=== PATIENT | male | born 1975 | race Caucasian/White ===

== ENCOUNTER 2017-01-26 07:15 | Inpatient (IN) ==
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
[2017-01-26] MEDS ORDERED: Ondansetron 4 MG/2 ML VIAL IVP ONE (07:38)
[2017-01-26] MEDS ORDERED: *HR* HYDROmorphone (PF) 1 MG/ML SYRINGE IVP ONE (07:43)
[2017-01-26] MEDS ORDERED: 0.9 % Sodium Chloride 1,000 ML IVC ONE (07:45)
[2017-01-26 07:52] LABS: Basophils % 0.2 %; Eosinophils # 0.1 K/mcL (0.0-0.6); Eosinophils % 0.7 %; Hematocrit 42.5 % (37.5-50.1); Hemoglobin 14.4 g/dL (12.9-16.9); Immature Granulocytes % 0.3 % (0-4); Immature Platelets 3.9 % (1.1-6.1); Lymphocytes # 1.1 K/mcL (0.6-4.6); Lymphocytes % 10.8 %; Mean Corpuscular HGB Conc 33.9 g/dL (31.6-35.5); Mean Corpuscular Hemoglobin 31.6 pg (28.0-33.3); Mean Corpuscular Volume 93.2 fL (83.0-100.0); Mean Platelet Volume 9.9 fL (9.4-12.4); Monocytes # 1.2 K/mcL (0.0-1.3); Monocytes % 12.7 %; Neutrophils # 7.4 K/mcL (1.6-8.9); Platelet Count 149 K/mcL (140-400); Red Blood Count 4.56 M/mcL (4.19-5.50); Red Cell Distribution Width 14.4 % (11.5-14.5); Segmented Neutrophils % 75.3 %
[2017-01-26] MEDS ORDERED: 0.9 % Sodium Chloride 500 ML IVC ONE (07:58)
[2017-01-26 08:06] LABS: Alanine Aminotransferase 29 Units/L (0-55); Albumin 3.5 g/dL (3.5-5.0); Alkaline Phosphatase 152 Units/L (38-126); Aspartate Amino Transferase 26 Units/L (5-34); BUN/Creatinine Ratio 10 (6-26); Bilirubin,Direct 0.2 mg/dL (0.0-0.5); Bilirubin,Indirect 0.3 mg/dL (0.0-1.2); Bilirubin,Total 0.5 mg/dL (0.2-1.2); Blood Urea Nitrogen 8 mg/dL (8-26); Calcium 9.6 mg/dL (8.6-10.8); Carbon Dioxide 25 mEq/L (19-29); Chloride 102 mEq/L (98-109); Globulin 3.5 g/dL (2.4-3.5); Glucose 109 mg/dL (70-99); Lipase 22 Units/L (8-78); Osmolality,Calculated 287 (280-300); Potassium 3.3 mEq/L (3.5-4.5); Sodium 139 mEq/L (136-145); eGFR For African Americans > 60 (> 60); eGFR For Non-African Americans > 60 (> 60)
--- NOTE | 2017-01-26 08:14 | Emergency Department Note ---
START Narrative - START START: I examined this patient and my medical decision-making was reviewed with the emergency medicine resident. I agree with the documented findings, disposition and treatment plan as described except to the extent set forth below. Patient seen with emergency medicine resident Dr. QUE VELÁZQUEZ, Please see a copy of his note for details of the H&P, ED evaluation, management and disposition. I have independently evaluated the patient and confirmed appropriate portions of the history and physical exam. Briefly: A 41-year-old -[place] male kidney transplant patient transplant done several years ago at [facility]. Presents with nausea vomiting abdominal cramping and bilateral lower quadrants and bloody stools. Patient does have a history of hypertension although systolic of 187 is much much elevated at this time. Patient's abdomen is surgically benign he is afebrile. Patient getting IV fluids anti-medics analgesics CBC and chemistry panel are within normal limits are essentially so. We consult to the care coordinator to get guidance on abdominal pelvic CT with IV contrast to exclude intra-abdominal processes and walk mesenteric ischemia. They recommended 150 mL per hour prior N and 6 hours after procedure. Patient is awaiting CT scan. Provided 45 minutes of critical care services for this patient. Disposition pending.
[2017-01-26 12:10] LABS: Amphetamine Screen,Urine Negative ng/mL (Cutoff=1000); Barbiturate Screen,Urine Negative ng/mL (Cutoff=200); Benzodiazepines Screen,Urine Positive ng/mL (Cutoff=200); Cannabinoid Screen,Urine Negative ng/mL (Cutoff = 50); Cocaine Screen,Urine Negative ng/mL (Cutoff= 300); Opiate Screen,Urine Positive ng/mL (Cutoff=300); Phencyclidine Screen,Urine Negative ng/mL (Cutoff=25)
[2017-01-26] MEDS ORDERED: Acetaminophen 325 MG TABLET PO PRN (12:51)
[2017-01-26] MEDS ORDERED: Naloxone 0.4 MG/ML INJ IVP PRN (12:51)
[2017-01-26] MEDS: Aspirin Enteric Coated 81 MG Tablet PO SCH (13:16)
[2017-01-26] MEDS: predniSONE 10 MG TABLET PO SCH (13:16)
[2017-01-26] MEDS: Pantoprazole 40 MG VIAL IVP SCH (13:16)
[2017-01-26] MEDS: 0.9 % Sodium Chloride 1,000 ML IVC SCH ×2 (13:16→20:53)
[2017-01-26] MEDS: SIROLIMUS 2 MG PO SCH (13:42)
[2017-01-26] MEDS: Nicotine 14 MG PATCH.TD24 TD SCH (13:42)
[2017-01-26] MEDS: Vancomycin Oral Soln 250 MG/5 ML UDC PO SCH ×3 (13:42→23:52)
[2017-01-26] MEDS: MYFORTIC 180MG PO SCH (13:59)
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
[2017-01-26] MEDS ORDERED: *HR* Dextrose 50 % in Water (Syg) 50 ML SYRINGE IVP PRN (15:34)
[2017-01-26] MEDS ORDERED: Dextrose Gel 15 GM PO PRN ×2 (15:34)
[2017-01-26] MEDS ORDERED: D5% in Water 1,000 ML IVC PRN (15:34)
[2017-01-26] MEDS: MetroNIDAZOLE 500 MG/100 ML 500 MG/100 ML BAG IVPB SCH ×2 (15:51→23:52)
[2017-01-26] MEDS: hydrALAZINE 25 MG TABLET PO SCH ×2 (15:51→20:46)
[2017-01-26] MEDS: Cefepime HCl 2,000 MG in D5% in Water (Mini-Bag+) 100 ML IVPB SCH ×2 (15:52→23:52)
[2017-01-26] MEDS: Ondansetron 4 MG/2 ML VIAL IVP SCH ×2 (15:52→20:45)
[2017-01-26] MEDS: *HR* Morphine 2 MG/ML SYRINGE IVP PRN ×2 (15:59→20:53)
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
[2017-01-26] MEDS: Insulin LISPRO 300 UNITS/3 ML VIAL SQ SCH ×2 (18:54→22:19)
[2017-01-27] MEDS: *HR* Morphine 2 MG/ML SYRINGE IVP PRN ×5 (01:17→23:44)
[2017-01-27] MEDS: MYFORTIC 180MG PO SCH ×2 (01:17→13:45)
[2017-01-27] MEDS: Ondansetron 4 MG/2 ML VIAL IVP SCH ×7 (01:17→23:53)
[2017-01-27 05:05] LABS: Immature Granulocytes % 0.3 % (0-4); Mean Corpuscular Volume 96.6 fL (83.0-100.0); Red Cell Distribution Width 14.6 % (11.5-14.5)
[2017-01-27 05:07] LABS: Basophils % 0.3 %; Eosinophils % 0.8 %; Hematocrit 33.9 % (37.5-50.1); Hemoglobin 10.8 g/dL (12.9-16.9); Immature Platelets 3.4 % (1.1-6.1); Lymphocytes # 0.9 K/mcL (0.6-4.6); Lymphocytes % 22.9 %; Mean Corpuscular HGB Conc 31.9 g/dL (31.6-35.5); Mean Corpuscular Hemoglobin 30.8 pg (28.0-33.3); Mean Platelet Volume 9.9 fL (9.4-12.4); Monocytes # 0.5 K/mcL (0.0-1.3); Monocytes % 12.6 %; Neutrophils # 2.5 K/mcL (1.6-8.9); Platelet Count 114 K/mcL (140-400); Red Blood Count 3.51 M/mcL (4.19-5.50); Segmented Neutrophils % 63.1 %
[2017-01-27 05:21] LABS: Alanine Aminotransferase 19 Units/L (0-55); Albumin/Globulin Ratio 1.1 (1.1-2.2); Alkaline Phosphatase 107 Units/L (38-126); Aspartate Amino Transferase 17 Units/L (5-34); BUN/Creatinine Ratio 13 (6-26); Bilirubin,Total 0.4 mg/dL (0.2-1.2); Blood Urea Nitrogen 9 mg/dL (8-26); Calcium 8.3 mg/dL (8.6-10.8); Carbon Dioxide 25 mEq/L (19-29); Chloride 108 mEq/L (98-109); Globulin 2.4 g/dL (2.4-3.5); Glucose 75 mg/dL (70-99); Magnesium 1.6 mg/dL (1.6-2.6); Osmolality,Calculated 283 (280-300); Phosphorous 2.5 mg/dL (2.3-4.7); Potassium 3.4 mEq/L (3.5-4.5); Sodium 138 mEq/L (136-145); eGFR For African Americans > 60 (> 60); eGFR For Non-African Americans > 60 (> 60)
[2017-01-27 05:24] LABS: Albumin 2.6 g/dL (3.5-5.0)
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
--- NOTE | 2017-01-27 07:01 | General Surgery Progress Note ---
<Gisella Lao - Last Filed: 01/27/17 10:45> Date of Encounter: 01/27/17 Time of Encounter: 06:20 - Assessment and Plan (1) Intractable abdominal pain Current Visit: Yes Status: Acute Patient still having pain in his abdomen especially in the LLQ but pain is less than before. PE showed a soft, mild disteneded, tender diffusely but mostly LLQ , bowel sounds present and normal. Patient currently does not have a surgical abdomen. Patient is currently on Flagyl. Vitals stable and afebrile. Plan: - serial abdominal exams - continue to monitor vitals - continue Flagyl - per surgery can progress from NPO to clears but should wait for GI's recommendations first. (2) Pancolitis Current Visit: Yes Status: Acute Vitals are stable and afebrile since hospital admission. WBC within normal limit. Continue Flagyl. Subjective Narrative: Patient is a 41 year old male with medical history of hypertension, renal transplant, renal disease, AICD, CAD, and hyperlipidemia presented to the the ED with chief complaint of progressive worsening of abdominal pain over the last couple of months and new onset blood in his stool x 3 days and was admitted for pancolitis, intractable abdominal pain and bloody stools. Surgery was consulted for possible progression of pancolitis infection to need for surgical intervention. Today patient says his pain is starting bilaterally on the lateral aspect of his back and wrapping around to his flanks. His abdominal pain is less today. He is hungry. He denies N/V, SOB, or chest pain. Objective Vital Signs - Last 8 Hours Temp Pulse Resp BP Pulse Ox 01/27/17 06:52 97.9 F 67 16 130/74 95 01/27/17 03:50 98.5 F 71 16 127/76 97 01/26/17 23:35 97.4 F L 70 16 94/55 98 01/26/17 23:08 98.2 F 84 15 112/65 94 Intake and Output 01/26/17 01/26/17 01/27/17 15:59 23:59 07:59 Intake Total 1200 / 1200 200 / 200 Balance 1200 / 1200 200 / 200 Intake: IV Fluids 1200 / 1200 200 / 200 0.9 % Sodium Chloride 1,000 ML 1000 / 1000 @ 150 mls/hr IVC .Q6H40M [facility] Rx #:[id number] Maxipime 2,000 MG In Dextrose 5 100 / 100 100 / 100 % (Minibag+) 100 ML 100 ML @ 200 mls/hr IVPB Q8HR [facility] Rx#: [id number] Flagyl Premix 500 MG/100 ML 500 100 / 100 100 / 100 mg In 100 ml @ 100 mls/hr IVPB Q8HR [facility] Rx#:[id number] Other: Meal NPO Weight 61.825 kg Blood Glucose* 95 74 Patient Weight 01/27/17 23:59 Weight 61.825 kg - Additional Exam Constitutional: Alert, in no acute distress, well nourished, well developed. Head: Normocephalic, atraumatic, normal contour and symmetric, no masses, lesions or scars Heart: Normal, regular rate and rhythm, no murmurs Lungs: + wheezing, Clear to auscultation, rales, or rhonchi Abdomen: scar from middle of sternum down to suprapubic area vertically, LLQ scar about 8cm, mild distention, tenderness diffusely but worst in the LLQ, Soft and no masses palpable, bowel sounds present and normal, no guarding or rigidity. Extremities: No clubbing, cyanosis, or edema, radial pulse +2/4, capillary refill <2sec. Skin: multiple small circular scars all over his body, Skin warm and dry, no lesions, no rashes, no jaundice Neurologic: Cranial nerves II through XII grossly intact, no focal deficits, strength within normal limits in all extremities Psych: Cooperative with exam, good eye contact, cognitive function intact, judgment good insight good, speech clear, thought process logical, and goal directed - Labs 01/27/17 04:58 01/27/17 04:58 Diabetes panel 01/27/17 01/27/17 Range/Units 04:58 04:58 Sodium 138 (136-145) mEq/L Potassium 3.4 L (3.5-4.5) mEq/L Chloride 108 (98-109) mEq/L Carbon Dioxide 25 (19-29) mEq/L BUN 9 (8-26) mg/dL Creatinine 0.71 L (0.72-1.25) mg/dL Glucose 75 (70-99) mg/dL Hemoglobin A1c 5.0 ( - 5.6) % Calcium 8.3 L (8.6-10.8) mg/dL AST 17 (5-34) Units/L ALT 19 (0-55) Units/L Alkaline Phosphatase 107 (38-126) Units/L Albumin 2.6 L D (3.5-5.0) g/dL Calcium panel 01/27/17 Range/Units 04:58 Calcium 8.3 L (8.6-10.8) mg/dL Phosphorus 2.5 (2.3-4.7) mg/dL Albumin 2.6 L D (3.5-5.0) g/dL Pituitary panel 01/27/17 Range/Units 04:58 Sodium 138 (136-145) mEq/L Potassium 3.4 L (3.5-4.5) mEq/L Chloride 108 (98-109) mEq/L Carbon Dioxide 25 (19-29) mEq/L BUN 9 (8-26) mg/dL Creatinine 0.71 L (0.72-1.25) mg/dL Glucose 75 (70-99) mg/dL Calcium 8.3 L (8.6-10.8) mg/dL Adrenal panel 01/27/17 Range/Units 04:58 Sodium 138 (136-145) mEq/L Potassium 3.4 L (3.5-4.5) mEq/L Chloride 108 (98-109) mEq/L Carbon Dioxide 25 (19-29) mEq/L BUN 9 (8-26) mg/dL Creatinine 0.71 L (0.72-1.25) mg/dL Glucose 75 (70-99) mg/dL Calcium 8.3 L (8.6-10.8) mg/dL Total Bilirubin 0.4 (0.2-1.2) mg/dL AST 17 (5-34) Units/L ALT 19 (0-55) Units/L Alkaline Phosphatase 107 (38-126) Units/L Albumin 2.6 L D (3.5-5.0) g/dL Consult Discharge Plan - Plan Referrals: Tolu Bustos MD [Primary Care Provider] - (web request 01/27/2017) <Africa Mustafa - Last Filed: 01/27/17 14:27> Date of Encounter: 01/27/17 Time of Encounter: 10:00 - Assessment and Plan (1) Abdominal pain Current Visit: Yes Status: Resolved pain resolved and not present this am passing flatus but no bm discussed that if he has further diarrhea with check a gi panel Qualifiers: Abdominal location: lower abdomen, unspecified Qualified Code(s): R10.30 - Lower abdominal pain, unspecified (2) Bloody stools Current Visit: Yes Status: Resolved no further bms, seems to have resolved (3) DVT prophylaxis Current Visit: Yes Status: Acute (4) Pancolitis Current Visit: Yes Status: Acute patients symptoms resolving and no further abdominal pain today, ok to start fulls and see how patient tolerates Subjective Patient reports: no new complaints, feels better, flatus, no bowel movement, afebrile Objective Vital Signs - Last 8 Hours Temp Pulse Resp BP Pulse Ox 01/27/17 10:00 97.6 F 61 16 115/69 94 01/27/17 08:22 95 01/27/17 06:52 97.9 F 67 16 130/74 95 Intake and Output 01/26/17 01/27/17 01/27/17 23:59 07:59 15:59 Intake Total 1200 / 1200 200 / 200 120 / 120 Balance 1200 / 1200 200 / 200 120 / 120 Intake: IV Fluids 1200 / 1200 200 / 200 0.9 % Sodium Chloride 1,000 ML 1000 / 1000 @ 150 mls/hr IVC .Q6H40M [facility] Rx #:[id number] Maxipime 2,000 MG In Dextrose 5 100 / 100 100 / 100 % (Minibag+) 100 ML 100 ML @ 200 mls/hr IVPB Q8HR [facility] Rx#: [id number] Flagyl Premix 500 MG/100 ML 500 100 / 100 100 / 100 mg In 100 ml @ 100 mls/hr IVPB Q8HR [facility] Rx#:[id number] Oral 120 / 120 Other: Meal NPO Lunch Percent of Meal Consumed 100% Weight 61.825 kg Blood Glucose* 95 74 93 Patient Weight 01/27/17 23:59 Weight 61.825 kg - General physical appearance well nourished, no distress, chronically ill - Eyes PERRL, normal ocular movement - ENT normal mucosa, normocephalic - Neck Neck exam: trachea midline - Respiratory normal expansion, clear to auscultation - Cardiovascular Cardiovascular exam: Present: RRR - Abdomen Abdomen: Present: bowel sounds present, soft, non tender. Absent: guarding, rebound - Integumentary no rash, no growths - Neurologic CN 2-12 grossly intact - Musculoskeletal normal posture - Psychiatric oriented to time, memory intact - Labs 01/27/17 04:58 01/27/17 04:58 Diabetes panel 01/27/17 01/27/17 Range/Units 04:58 04:58 Sodium 138 (136-145) mEq/L Potassium 3.4 L (3.5-4.5) mEq/L Chloride 108 (98-109) mEq/L Carbon Dioxide 25 (19-29) mEq/L BUN 9 (8-26) mg/dL Creatinine 0.71 L (0.72-1.25) mg/dL Glucose 75 (70-99) mg/dL Hemoglobin A1c 5.0 ( - 5.6) % Calcium 8.3 L (8.6-10.8) mg/dL AST 17 (5-34) Units/L ALT 19 (0-55) Units/L Alkaline Phosphatase 107 (38-126) Units/L Albumin 2.6 L D (3.5-5.0) g/dL Calcium panel 01/27/17 Range/Units 04:58 Calcium 8.3 L (8.6-10.8) mg/dL Phosphorus 2.5 (2.3-4.7) mg/dL Albumin 2.6 L D (3.5-5.0) g/dL Pituitary panel 01/27/17 Range/Units 04:58 Sodium 138 (136-145) mEq/L Potassium 3.4 L (3.5-4.5) mEq/L Chloride 108 (98-109) mEq/L Carbon Dioxide 25 (19-29) mEq/L BUN 9 (8-26) mg/dL Creatinine 0.71 L (0.72-1.25) mg/dL Glucose 75 (70-99) mg/dL Calcium 8.3 L (8.6-10.8) mg/dL Adrenal panel 01/27/17 Range/Units 04:58 Sodium 138 (136-145) mEq/L Potassium 3.4 L (3.5-4.5) mEq/L Chloride 108 (98-109) mEq/L Carbon Dioxide 25 (19-29) mEq/L BUN 9 (8-26) mg/dL Creatinine 0.71 L (0.72-1.25) mg/dL Glucose 75 (70-99) mg/dL Calcium 8.3 L (8.6-10.8) mg/dL Total Bilirubin 0.4 (0.2-1.2) mg/dL AST 17 (5-34) Units/L ALT 19 (0-55) Units/L Alkaline Phosphatase 107 (38-126) Units/L Albumin 2.6 L D (3.5-5.0) g/dL - Attending Attestation I examined this patient and my medical decision-making was reviewed with the Resident Physician. I agree with the documented findings, disposition and treatment plan as described except to the extent set forth below.
[2017-01-27] MEDS: Insulin LISPRO 300 UNITS/3 ML VIAL SQ SCH ×4 (07:33→19:57)
[2017-01-27] MEDS: MetroNIDAZOLE 500 MG/100 ML 500 MG/100 ML BAG IVPB SCH ×3 (07:51→23:45)
[2017-01-27] MEDS: Cefepime HCl 2,000 MG in D5% in Water (Mini-Bag+) 100 ML IVPB SCH ×3 (07:51→23:50)
[2017-01-27] MEDS: Aspirin Enteric Coated 81 MG Tablet PO SCH (08:04)
[2017-01-27] MEDS: predniSONE 10 MG TABLET PO SCH (08:04)
[2017-01-27] MEDS: Nicotine 14 MG PATCH.TD24 TD SCH (08:04)
[2017-01-27] MEDS: hydrALAZINE 25 MG TABLET PO SCH ×3 (08:04→20:08)
[2017-01-27] MEDS: Pantoprazole 40 MG VIAL IVP SCH (08:05)
[2017-01-27] MEDS: Vancomycin Oral Soln 250 MG/5 ML UDC PO SCH ×4 (10:05→20:09)
[2017-01-27] MEDS ORDERED: Potassium Chloride 40 MEQ, Lidocaine 1% 2 ML in D5% in Water 500 ML IVPB ONE (10:30)
[2017-01-27] MEDS ORDERED: Patient Taking Own Medication 1 EACH PO SCH (13:00)
--- NOTE | 2017-01-27 16:52 | Internal Med Progress Note ---
Date of Encounter: 01/27/17 Time of Encounter: 16:49 - Assessment and plan (1) Pancolitis Current Visit: Yes Status: Acute (2) Bloody stools Current Visit: Yes Status: Resolved (3) Hypokalemia Current Visit: Yes Status: Acute (4) HTN (hypertension) Current Visit: Yes Status: Chronic Qualifiers: Hypertension type: essential hypertension Qualified Code(s): I10 - Essential (primary) hypertension (5) HLD (hyperlipidemia) Current Visit: Yes Status: Chronic Qualifiers: Hyperlipidemia type: pure hypercholesterolemia Qualified Code(s): E78.00 - Pure hypercholesterolemia, unspecified; E78.0 - Pure hypercholesterolemia (6) Renal transplant recipient Current Visit: Yes Status: Chronic - Subjective Interval history: Patient reports abdominal pain in lower abdomen that has been occurring for the past month and half. He had CT scan here on 01/01/17 which showed colitis for which he was prescribed antibiotics and recently finished. Patient reports pain has become significantly worse over the past 2 days and he has developed blood in his stool. Yesterday started on Levaquin and Flagyl. Abdominal is soft but distended and tender. Requesting food. Clear liquids can be started. Potassium will be supplemented. He will need colonoscopy at some point. His hemoglobin has dropped quite significantly and CBC will be rechecked. This could be due to hemodilution partly - Constitutional Vitals: Temp Pulse Resp BP Pulse Ox 97.5 F L 61 16 148/83 99 01/27/17 14:00 01/27/17 14:00 01/27/17 14:00 01/27/17 14:00 01/27/17 14:00 General appearance: Present: cooperative, A&O X 3, pleasant, severe distress ( Moderate to severe abdominal distress in lower abdomen with palpation), underweight, answers questions appropriately - Head Head exam: Present: atraumatic, normocephalic - Eye Eye exam: Present: PERRL, conjuntiva pink, sclera anicteric Pupils: Present: PERRL - Neck Neck exam general surgery: Present: supple, trachea midline. Absent: lymphadenopathy - Respiratory Respiratory exam: Present: CTAB. Absent: accessory muscle use, rales, rhonchi, wheezes - Cardiovascular Cardiovascular exam: Present: RRR, +S1, +S2. Absent: diastolic murmur, gallop, rubs, systolic murmur - GI/Abdominal GI/Abdominal exam: Present: normal bowel sounds, soft, tenderness, no peritoneal signs. Absent: distended - Extremities Exam Extremities exam: Present: warm, radial pulses palpable and symmetrical. Absent : calf tenderness, cyanotic, pedal edema - Neurological Exam Neurological exam: Present: CN II-XII intact, oriented X3, no focal deficits. Absent: pronater drift, facial droop, speech deficit - Skin Skin exam: Present: dry, intact Internal Medicine: Result - Labs CBC & Chem 7: 01/27/17 04:58 01/27/17 04:58 Labs: Short CBC 01/27/17 Range/Units 04:58 WBC 3.9 L D (4.3-11.1) K/mcL Hgb 10.8 L D (12.9-16.9) g/dL Hct 33.9 L (37.5-50.1) % Plt Count 114 L (140-400) K/mcL Neutrophils # 2.5 (1.6-8.9) K/mcL BMP 01/27/17 04:58 Sodium 138 Potassium 3.4 L Chloride 108 Carbon Dioxide 25 BUN 9 Creatinine 0.71 L Glucose 75 Calcium 8.3 L Liver Function 01/27/17 Range/Units 04:58 Total Bilirubin 0.4 (0.2-1.2) mg/dL AST 17 (5-34) Units/L ALT 19 (0-55) Units/L Alkaline Phosphatase 107 (38-126) Units/L Albumin 2.6 L D (3.5-5.0) g/dL Consult Discharge Plan - Plan Referrals: Tolu Bustos MD [Primary Care Provider] - (web request 01/27/2017)
[2017-01-27 18:17] LABS: Adenovirus F 40/41 PCR Not detected (Not detect); Astrovirus PCR Not detected (Not detect); C.difficile Toxin A/B by PCR See reflex test (Not detect); Campylobacter by PCR Not detected (Not detect); Cryptosporidium by PCR Not detected (Not detect); Cyclospora cayetanensis PCR Not detected (Not detect); E. coli O157 by PCR Not detected (Not detect); Entamoeba histolytica PCR Not detected (Not detect); Enteroaggregative E.coli(EAEC) Not detected (Not detect); Enteropathogenic E.coli(EPEC) Not detected (Not detect); Enterotoxigenic E.coli (ETEC) Not detected (Not detect); Giardia lamblia PCR Not detected (Not detect); Norovirus GI/GII PCR Not detected (Not detect); Plesiomonas shigelloides PCR Not detected (Not detect); Rotavirus A PCR Not detected (Not detect); Salmonella PCR Not detected (Not detect); Sapovirus PCR Not detected (Not detect); Shig/EnteroinvasiveE coli EIEC Not detected (Not detect); Shigalike tox-prod E coli STEC Not detected (Not detect); Vibrio PCR Not detected (Not detect); Vibrio cholerae PCR Not detected (Not detect); Yersinia enterocolitica PCR Not detected (Not detect)
[2017-01-28] MEDS: MYFORTIC 180MG PO SCH ×2 (02:35→13:46)
[2017-01-28 04:34] LABS: Basophils % 0.5 %; Eosinophils % 0.9 %; Hematocrit 34.9 % (37.5-50.1); Hemoglobin 11.2 g/dL (12.9-16.9); Immature Granulocytes % 0.5 % (0-4); Lymphocytes # 1.1 K/mcL (0.6-4.6); Lymphocytes % 26.3 %; Mean Corpuscular HGB Conc 32.1 g/dL (31.6-35.5); Mean Corpuscular Hemoglobin 31.3 pg (28.0-33.3); Mean Corpuscular Volume 97.5 fL (83.0-100.0); Monocytes # 0.6 K/mcL (0.0-1.3); Monocytes % 13.9 %; Neutrophils # 2.5 K/mcL (1.6-8.9); Platelet Count 111 K/mcL (140-400); Red Blood Count 3.58 M/mcL (4.19-5.50); Red Cell Distribution Width 14.6 % (11.5-14.5); Segmented Neutrophils % 57.9 %
[2017-01-28 04:47] LABS: Alanine Aminotransferase 23 Units/L (0-55); Albumin 2.6 g/dL (3.5-5.0); Albumin/Globulin Ratio 1.1 (1.1-2.2); Alkaline Phosphatase 134 Units/L (38-126); Aspartate Amino Transferase 20 Units/L (5-34); BUN/Creatinine Ratio 9 (6-26); Bilirubin,Total 0.2 mg/dL (0.2-1.2); Blood Urea Nitrogen 8 mg/dL (8-26); Calcium 8.5 mg/dL (8.6-10.8); Carbon Dioxide 24 mEq/L (19-29); Chloride 107 mEq/L (98-109); Globulin 2.4 g/dL (2.4-3.5); Glucose 88 mg/dL (70-99); Magnesium 1.5 mg/dL (1.6-2.6); Osmolality,Calculated 280 (280-300); Phosphorous 1.8 mg/dL (2.3-4.7); Potassium 3.8 mEq/L (3.5-4.5); Sodium 136 mEq/L (136-145); eGFR For African Americans > 60 (> 60); eGFR For Non-African Americans > 60 (> 60)
[2017-01-28] MEDS: Ondansetron 4 MG/2 ML VIAL IVP SCH ×3 (05:27→11:28)
[2017-01-28] MEDS: Insulin LISPRO 300 UNITS/3 ML VIAL SQ SCH ×4 (08:54→21:15)
[2017-01-28] MEDS: MetroNIDAZOLE 500 MG/100 ML 500 MG/100 ML BAG IVPB SCH ×4 (09:02→23:56)
[2017-01-28] MEDS: Cefepime HCl 2,000 MG in D5% in Water (Mini-Bag+) 100 ML IVPB SCH (09:02)
[2017-01-28] MEDS: Pantoprazole 40 MG VIAL IVP SCH (09:04)
[2017-01-28] MEDS: Aspirin Enteric Coated 81 MG Tablet PO SCH (09:05)
[2017-01-28] MEDS: hydrALAZINE 25 MG TABLET PO SCH ×3 (09:05→21:15)
[2017-01-28] MEDS: predniSONE 10 MG TABLET PO SCH (09:05)
[2017-01-28] MEDS: Nicotine 14 MG PATCH.TD24 TD SCH (09:06)
[2017-01-28] MEDS: Vancomycin Oral Soln 250 MG/5 ML UDC PO SCH ×2 (09:06→11:57)
[2017-01-28] MEDS: SIROLIMUS 2 MG PO SCH (11:28)
--- NOTE | 2017-01-28 11:47 | General Surgery Progress Note ---
<Gisella Lao - Last Filed: 01/28/17 11:43> Date of Encounter: 01/28/17 Time of Encounter: 11:00 - Assessment and Plan (1) Intractable abdominal pain Current Visit: Yes Status: Acute Patient's abdominal pain has resolved and he tolerated fulls with no N/V and is still hungry. Cdiff PCR came back positive and patient was placed on contact precautions. Patient is currently on Flagyl and Vanco. Vitals stable and afebrile. Plan: - serial abdominal exams - continue to monitor vitals - Antibiotics: Flagyl and Vanco - Diet: can advance to regular diet, avoid fatty foods while having diarrhea. - No need for surgical intervention. Surgery will sign off. Please contact with questions. (2) Pancolitis Current Visit: Yes Status: Acute Vitals are stable and afebrile since hospital admission. Patient is on Flagyl and Vanco. No surgical intervention needed. Subjective Narrative: Patient is a 41 year old male with medical history of hypertension, renal transplant, renal disease, AICD, CAD, and hyperlipidemia presented to the the ED with chief complaint of progressive worsening of abdominal pain over the last couple of months and new onset blood in his stool x 3 days and was admitted for pancolitis, intractable abdominal pain and bloody stools. Surgery was consulted for possible progression of pancolitis infection to need for surgical intervention. Today, patient states his abdominal pain is gone. He has not had any blood stools. He tolerated full liquids without N/V and was still hungry as they are not filling him up. He denies SOB or chest pain. Objective Vital Signs - Last 8 Hours Temp Pulse Resp BP Pulse Ox 01/28/17 11:05 98.5 F 63 18 124/72 93 01/28/17 07:04 98.2 F 62 18 154/84 96 Intake and Output 01/27/17 01/28/17 01/28/17 23:59 07:59 15:59 Intake Total 540 / 540 200 / 200 240 / 240 Output Total 350 / 350 Balance 540 / 540 -150 / -150 240 / 240 Intake: IV Fluids 200 / 200 200 / 200 Maxipime 2,000 MG In Dextrose 5 100 / 100 100 / 100 % (Minibag+) 100 ML 100 ML @ 200 mls/hr IVPB Q8HR [facility] Rx#: [id number] Flagyl Premix 500 MG/100 ML 500 100 / 100 100 / 100 mg In 100 ml @ 100 mls/hr IVPB Q8HR [facility] Rx#:[id number] Oral 340 / 340 240 / 240 Output: Urine 350 / 350 Other: Meal Dinner Breakfast Percent of Meal Consumed 100% 100% Weight 62 kg Blood Glucose* 94 89 114 Patient Weight 01/28/17 23:59 Weight 62 kg - Additional Exam Constitutional: Alert, in no acute distress, well nourished, well developed. Head: Normocephalic, atraumatic, normal contour and symmetric, no masses, lesions or scars Heart: Normal, regular rate and rhythm, no murmurs Lungs: + wheezing, Clear to auscultation, rales, or rhonchi Abdomen: scar from middle of sternum down to suprapubic area vertically, LLQ scar about 8cm, mild tenderness in LLQ with palpation, Soft and no masses palpable, bowel sounds present and normal, no guarding or rigidity. Extremities: No clubbing, cyanosis, or edema, radial pulse +2/4, capillary refill <2sec. Skin: multiple small circular scars all over his body, Skin warm and dry, no lesions, no rashes, no jaundice Neurologic: Cranial nerves II through XII grossly intact, no focal deficits, strength within normal limits in all extremities Psych: Cooperative with exam, good eye contact, cognitive function intact, judgment good insight good, speech clear, thought process logical, and goal directed - Labs 01/28/17 04:22 01/28/17 04:22 Diabetes panel 01/28/17 Range/Units 04:22 Sodium 136 (136-145) mEq/L Potassium 3.8 (3.5-4.5) mEq/L Chloride 107 (98-109) mEq/L Carbon Dioxide 24 (19-29) mEq/L BUN 8 (8-26) mg/dL Creatinine 0.88 (0.72-1.25) mg/dL Glucose 88 (70-99) mg/dL Calcium 8.5 L (8.6-10.8) mg/dL AST 20 (5-34) Units/L ALT 23 (0-55) Units/L Alkaline Phosphatase 134 H (38-126) Units/L Albumin 2.6 L (3.5-5.0) g/dL Calcium panel 01/28/17 Range/Units 04:22 Calcium 8.5 L (8.6-10.8) mg/dL Phosphorus 1.8 L (2.3-4.7) mg/dL Albumin 2.6 L (3.5-5.0) g/dL Pituitary panel 01/28/17 Range/Units 04:22 Sodium 136 (136-145) mEq/L Potassium 3.8 (3.5-4.5) mEq/L Chloride 107 (98-109) mEq/L Carbon Dioxide 24 (19-29) mEq/L BUN 8 (8-26) mg/dL Creatinine 0.88 (0.72-1.25) mg/dL Glucose 88 (70-99) mg/dL Calcium 8.5 L (8.6-10.8) mg/dL Adrenal panel 01/28/17 Range/Units 04:22 Sodium 136 (136-145) mEq/L Potassium 3.8 (3.5-4.5) mEq/L Chloride 107 (98-109) mEq/L Carbon Dioxide 24 (19-29) mEq/L BUN 8 (8-26) mg/dL Creatinine 0.88 (0.72-1.25) mg/dL Glucose 88 (70-99) mg/dL Calcium 8.5 L (8.6-10.8) mg/dL Total Bilirubin 0.2 (0.2-1.2) mg/dL AST 20 (5-34) Units/L ALT 23 (0-55) Units/L Alkaline Phosphatase 134 H (38-126) Units/L Albumin 2.6 L (3.5-5.0) g/dL - VTE Documentation of Mechanical Device: Intermittent pneumatic compression device Consult Discharge Plan - Plan Referrals: Tolu Bustos MD [Primary Care Provider] - (web request 01/27/2017) <Africa Mustafa - Last Filed: 01/29/17 11:50> Date of Encounter: 01/28/17 - Assessment and Plan (1) Abdominal pain Current Visit: Yes Status: Resolved pain resolved Qualifiers: Abdominal location: lower abdomen, unspecified Qualified Code(s): R10.30 - Lower abdominal pain, unspecified (2) Bloody stools Current Visit: Yes Status: Resolved (3) DVT prophylaxis Current Visit: Yes Status: Acute (4) Pancolitis Current Visit: Yes Status: Acute pain resolved, tolerating diet, no surgical intervention needed, will sign off at this time Subjective Narrative: no abdominimal pain tolerating fulls Objective Vital Signs - Last 8 Hours Temp Pulse Resp BP Pulse Ox 01/29/17 07:27 98.5 F 59 19 142/72 98 01/29/17 03:53 97.8 F 55 18 129/67 96 Intake and Output 01/28/17 01/29/17 01/29/17 23:59 07:59 15:59 Intake Total 460 / 460 340 / 340 480 / 480 Balance 460 / 460 340 / 340 480 / 480 Intake: IV Fluids 100 / 100 100 / 100 Flagyl Premix 500 MG/100 ML 500 100 / 100 100 / 100 mg In 100 ml @ 100 mls/hr IVPB Q6HR [facility] Rx#:[id number] Oral 360 / 360 240 / 240 480 / 480 Other: Meal Dinner Breakfast Percent of Meal Consumed 95% 100% Weight 66.224 kg Blood Glucose* 165 145 Patient Weight 01/29/17 23:59 Weight 66.224 kg - General physical appearance well nourished, no distress - Eyes normal ocular movement - ENT normal mucosa, atraumatic - Neck Neck exam: trachea midline - Respiratory normal respiratory effort - Cardiovascular Cardiovascular exam: Present: RRR - Abdomen Abdomen: Present: soft, non tender - Integumentary no rash, no growths - Neurologic CN 2-12 grossly intact - Psychiatric oriented to time, oriented to person, oriented to place, speech is normal - Labs 01/29/17 03:24 01/29/17 03:24 Diabetes panel 01/29/17 Range/Units 03:24 Sodium 139 (136-145) mEq/L Potassium 3.7 (3.5-4.5) mEq/L Chloride 108 (98-109) mEq/L Carbon Dioxide 23 (19-29) mEq/L BUN 9 (8-26) mg/dL Creatinine 0.86 (0.72-1.25) mg/dL Glucose 138 H (70-99) mg/dL Calcium 8.5 L (8.6-10.8) mg/dL AST 19 (5-34) Units/L ALT 22 (0-55) Units/L Alkaline Phosphatase 133 H (38-126) Units/L Albumin 2.5 L (3.5-5.0) g/dL Calcium panel 01/29/17 Range/Units 03:24 Calcium 8.5 L (8.6-10.8) mg/dL Phosphorus 3.6 D (2.3-4.7) mg/dL Albumin 2.5 L (3.5-5.0) g/dL Pituitary panel 01/29/17 Range/Units 03:24 Sodium 139 (136-145) mEq/L Potassium 3.7 (3.5-4.5) mEq/L Chloride 108 (98-109) mEq/L Carbon Dioxide 23 (19-29) mEq/L BUN 9 (8-26) mg/dL Creatinine 0.86 (0.72-1.25) mg/dL Glucose 138 H (70-99) mg/dL Calcium 8.5 L (8.6-10.8) mg/dL Adrenal panel 01/29/17 Range/Units 03:24 Sodium 139 (136-145) mEq/L Potassium 3.7 (3.5-4.5) mEq/L Chloride 108 (98-109) mEq/L Carbon Dioxide 23 (19-29) mEq/L BUN 9 (8-26) mg/dL Creatinine 0.86 (0.72-1.25) mg/dL Glucose 138 H (70-99) mg/dL Calcium 8.5 L (8.6-10.8) mg/dL Total Bilirubin 0.2 (0.2-1.2) mg/dL AST 19 (5-34) Units/L ALT 22 (0-55) Units/L Alkaline Phosphatase 133 H (38-126) Units/L Albumin 2.5 L (3.5-5.0) g/dL - Attending Attestation I examined this patient and my medical decision-making was reviewed with the Resident Physician. I agree with the documented findings, disposition and treatment plan as described except to the extent set forth below.
[2017-01-28] MEDS ORDERED: *HR* HYDROcodone/Acet 5/325 mg TABLET PO PRN (12:25)
[2017-01-28] MEDS ORDERED: WATER IVPB ONE (12:27)
[2017-01-28] MEDS ORDERED: D5 IVPB ONE (12:27)
[2017-01-28] MEDS ORDERED: SODIUM PHOSPHATE IVPB ONE (12:27)
--- NOTE | 2017-01-28 12:54 | Internal Med Progress Note ---
Date of Encounter: 01/28/17 Time of Encounter: 12:51 - Assessment and plan (1) Pancolitis Current Visit: Yes Status: Acute (2) Bloody stools Current Visit: Yes Status: Resolved (3) Hypokalemia Current Visit: Yes Status: Acute (4) HTN (hypertension) Current Visit: Yes Status: Chronic Qualifiers: Hypertension type: essential hypertension Qualified Code(s): I10 - Essential (primary) hypertension (5) HLD (hyperlipidemia) Current Visit: Yes Status: Chronic Qualifiers: Hyperlipidemia type: pure hypercholesterolemia Qualified Code(s): E78.00 - Pure hypercholesterolemia, unspecified; E78.0 - Pure hypercholesterolemia (6) Renal transplant recipient Current Visit: Yes Status: Chronic - Subjective Interval history: Patient reports abdominal pain in lower abdomen that has been occurring for the past month and half. He had CT scan here on 01/01/17 which showed colitis for which he was prescribed antibiotics and recently finished. Patient reports pain has become significantly worse over the past 2 days and he has developed blood in his stool. He was started on vancomycin cefepime and Flagyl. Yesterday stool C. difficile came back positive therefore he will be left on Flagyl and vancomycin and cefepime will be stopped. Potassium is corrected now and magnesium and phosphate will be supplemented as they are low. He will need colonoscopy at some point. Central oncologist consulted. His hemoglobin is around 11. This could be due to hemodilution partly. I do not suspect any active bleed at this point. Patient states that his abdominal pain is improving while diarrhea has not stopped this morning. Recheck labs for tomorrow including potassium and magnesium and phosphate as well as CBC and awaiting colon anoscopy - Constitutional Vitals: Temp Pulse Resp BP Pulse Ox 98.5 F 63 18 124/72 93 01/28/17 11:05 01/28/17 11:05 01/28/17 11:05 01/28/17 11:05 01/28/17 11:05 General appearance: Present: cooperative, A&O X 3, pleasant, severe distress ( Moderate to severe abdominal distress in lower abdomen with palpation), underweight, answers questions appropriately - Head Head exam: Present: atraumatic, normocephalic - Eye Eye exam: Present: PERRL, conjuntiva pink, sclera anicteric Pupils: Present: PERRL - Neck Neck exam general surgery: Present: supple, trachea midline. Absent: lymphadenopathy - Respiratory Respiratory exam: Present: CTAB. Absent: accessory muscle use, rales, rhonchi, wheezes - Cardiovascular Cardiovascular exam: Present: RRR, +S1, +S2. Absent: diastolic murmur, gallop, rubs, systolic murmur - GI/Abdominal GI/Abdominal exam: Present: normal bowel sounds, soft, tenderness, no peritoneal signs. Absent: distended - Extremities Exam Extremities exam: Present: warm, radial pulses palpable and symmetrical. Absent : calf tenderness, cyanotic, pedal edema - Neurological Exam Neurological exam: Present: CN II-XII intact, oriented X3, no focal deficits. Absent: pronater drift, facial droop, speech deficit - Skin Skin exam: Present: dry, intact Internal Medicine: Result - Labs CBC & Chem 7: 01/28/17 04:22 01/28/17 04:22 Labs: Short CBC 01/28/17 Range/Units 04:22 WBC 4.3 (4.3-11.1) K/mcL Hgb 11.2 L (12.9-16.9) g/dL Hct 34.9 L (37.5-50.1) % Plt Count 111 L (140-400) K/mcL Neutrophils # 2.5 (1.6-8.9) K/mcL BMP 01/28/17 04:22 Sodium 136 Potassium 3.8 Chloride 107 Carbon Dioxide 24 BUN 8 Creatinine 0.88 Glucose 88 Calcium 8.5 L Liver Function 01/28/17 Range/Units 04:22 Total Bilirubin 0.2 (0.2-1.2) mg/dL AST 20 (5-34) Units/L ALT 23 (0-55) Units/L Alkaline Phosphatase 134 H (38-126) Units/L Albumin 2.6 L (3.5-5.0) g/dL - VTE Documentation of Mechanical Device: Intermittent pneumatic compression device Consult Discharge Plan - Plan Referrals: Tolu Bustos MD [Primary Care Provider] - (web request 01/27/2017)
[2017-01-28] MEDS: Magnesium Sulfate 2 GM in D5% in Water 100 ML IVPB SCH ×2 (13:45→15:55)
[2017-01-28] MEDS: *HR* HYDROcodone/Acet 10/325 mg TABLET PO PRN ×2 (14:40→21:15)
[2017-01-28] MEDS ORDERED: Ondansetron 4 MG/2 ML VIAL IVP PRN (14:44)
--- NOTE | 2017-01-28 16:54 | Venous Imaging Report ---
LE Venous Duplex Patient Name:Hieu Burnham Order Number:[id number] Procedure Date:01/26/2017 Date:1975Age:41 yrs Gender:Male Location:[facility] Room #: [id number] Senior Paralegal:Abdirahman Wu RVT, RDCS Referring MD:Ambrose Burrows MD open tenter operator:Tolu Bustos MD Reading MD:Gerson Mckeon MD , FACS Primary Indications:leg edema Secondary Indications: Risk Factors Yes/No Hx of DVT No Anticoagulants No Impressions: Left lower extremity: normal superficial and deep exam. Right lower extremity: normal contralateral exam. Recommendations: After imaging the patient returned to their room. Test completed on 01/26/2017 at 1:58:51 pm. Critical findings reported to LARISA Patel in person at 2:00:31 pm on 01/26/2017 by Abdirahman Wu RVT, RDCS. Findings Venous Duplex Results: Right: Venous imaging of the lower extremity reveals full patency and normal vessel compressibility of the right common femoral. Doppler signals in the evaluated veins were normal. Left: Venous imaging of the lower extremity reveals full patency and normal vessel compressibility of the left distal iliac, left common femoral, left superficial femoral, left popliteal, left posterior tibial, left peroneal, left great saphenous and left lesser saphenous. Doppler signals in the evaluated veins were normal. Prior Study: No prior study available for comparison. Lower Extremity Venous Duplex Side Vein Compress Spontaneous Flow Augment Diameter (cm) Depth (cm) Left Distal Iliac Normal Yes Phasic Yes Left Common Femoral Normal Yes Phasic Yes Left Superficial Femoral Normal Yes Phasic Yes Left Popliteal Normal Yes Phasic Yes Left Posterior Tibial Normal Yes Phasic Yes Left Peroneal Normal Yes Phasic Yes Left Great Saphenous Normal Yes Phasic Yes Left Lesser Saphenous Normal Yes Phasic Yes Right Common Femoral Normal Yes Phasic Yes Updated by Gerson Mckeon MD, FACS on 01/28/2017 4:47:42 PM Gerson Mckeon MD electronically signed on 01/28/2017 4:47:55 PM with status of Final
[2017-01-29] MEDS: MYFORTIC 180MG PO SCH (02:15)
[2017-01-29 04:31] LABS: Basophils % 0.2 %; Eosinophils % 0.6 %; Hemoglobin 11.2 g/dL (12.9-16.9); Immature Granulocytes % 0.8 % (0-4); Lymphocytes % 21.8 %; Mean Corpuscular Hemoglobin 30.9 pg (28.0-33.3); Mean Corpuscular Volume 96.7 fL (83.0-100.0); Mean Platelet Volume 10.5 fL (9.4-12.4); Monocytes # 0.5 K/mcL (0.0-1.3); Monocytes % 11.3 %; Neutrophils # 3.1 K/mcL (1.6-8.9); Platelet Count 118 K/mcL (140-400); Red Blood Count 3.62 M/mcL (4.19-5.50); Red Cell Distribution Width 14.7 % (11.5-14.5); Segmented Neutrophils % 65.3 %
[2017-01-29 04:57] LABS: Alanine Aminotransferase 22 Units/L (0-55); Albumin 2.5 g/dL (3.5-5.0); Alkaline Phosphatase 133 Units/L (38-126); Aspartate Amino Transferase 19 Units/L (5-34); BUN/Creatinine Ratio 10 (6-26); Bilirubin,Total 0.2 mg/dL (0.2-1.2); Blood Urea Nitrogen 9 mg/dL (8-26); Calcium 8.5 mg/dL (8.6-10.8); Carbon Dioxide 23 mEq/L (19-29); Chloride 108 mEq/L (98-109); Globulin 2.5 g/dL (2.4-3.5); Glucose 138 mg/dL (70-99); Osmolality,Calculated 289 (280-300); Potassium 3.7 mEq/L (3.5-4.5); Sodium 139 mEq/L (136-145); eGFR For African Americans > 60 (> 60); eGFR For Non-African Americans > 60 (> 60)
[2017-01-29 04:59] LABS: Phosphorous 3.6 mg/dL (2.3-4.7)
[2017-01-29] MEDS: MetroNIDAZOLE 500 MG/100 ML 500 MG/100 ML BAG IVPB SCH ×2 (05:22→12:22)
[2017-01-29] MEDS: hydrALAZINE 25 MG TABLET PO SCH (08:03)
[2017-01-29] MEDS: predniSONE 10 MG TABLET PO SCH (08:03)
[2017-01-29] MEDS: Aspirin Enteric Coated 81 MG Tablet PO SCH (08:03)
[2017-01-29] MEDS: Pantoprazole 40 MG VIAL IVP SCH (08:04)
[2017-01-29] MEDS: Insulin LISPRO 300 UNITS/3 ML VIAL SQ SCH ×2 (08:04→12:29)
[2017-01-29] MEDS: Nicotine 14 MG PATCH.TD24 TD SCH (08:04)
[2017-01-29] MEDS: *HR* HYDROcodone/Acet 10/325 mg TABLET PO PRN (08:13)
[2017-01-29 12:23] VITALS: BP 146/76
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
== END 2017-01-29 15:22 | disposition home or self-care (01) | DRG 245 ==
LOC: EMEROO 07:15 → 2ANU 07:15 → SUATTDRO 12:50
PROVIDERS: ADMIT Internal Medicine; ATTEND Internal Medicine

== ENCOUNTER 2019-03-20 04:27 | Observation (INO) ==
[2019-03-20] MEDS ORDERED: Albuterol 2.5 MG/3 ML NEBULIZER IH ONE (04:40)
[2019-03-20] MEDS ORDERED: methylPREDNISolone 125 MG/2 ML VIAL IVP ONE (04:40)
[2019-03-20 05:15] LABS: ABG Base Excess 3 mEq/L (-2 to 3); ABG HCO3 28 mEq/L (21-27); ABG Oxygen Saturation 95 % (95-98); ABG PCO2 43 mmHg (35-45); ABG PH 7.42 pH Units (7.32-7.45); ABG PO2 77 mmHg (85-104); ABG TCO2 29 mEq/L (20-26)
[2019-03-20] MEDS ORDERED: Furosemide 40 MG in 0.9 % Sodium Chloride 50 ML IV STA (05:17)
[2019-03-20 05:33] LABS: Basophils % 0.2 %; Eosinophils # 0.1 K/mcL (0.0-0.6); Eosinophils % 0.5 %; Hematocrit 43.5 % (37.5-50.1); Hemoglobin 14.5 g/dL (12.9-16.9); Immature Granulocytes % 0.4 % (0-4); Lymphocytes # 1.1 K/mcL (0.6-4.6); Lymphocytes % 11.7 %; Mean Corpuscular HGB Conc 33.3 g/dL (31.6-35.5); Mean Corpuscular Hemoglobin 30.7 pg (28.0-33.3); Mean Platelet Volume 9.3 fL (9.4-12.4); Monocytes # 0.7 K/mcL (0.0-1.3); Monocytes % 7.2 %; Neutrophils # 7.5 K/mcL (1.6-8.9); Platelet Count 222 K/mcL (140-400); Red Blood Count 4.72 M/mcL (4.19-5.50); Red Cell Distribution Width 15.1 % (11.5-14.5); White Blood Count 9.4 K/mcL (4.3-11.1)
[2019-03-20 05:34] LABS: Mean Corpuscular Volume 92.2 fL (83.0-100.0)
[2019-03-20 05:56] LABS: BUN/Creatinine Ratio 8 (6-26); Blood Urea Nitrogen 8 mg/dL (6-20); Carbon Dioxide 27 mEq/L (23-29); Chloride 103 mEq/L (98-107); Glucose 98 mg/dL (70-105); Osmolality,Calculated 286 (280-300); Potassium 4.5 mEq/L (3.5-5.1); Sodium 139 mEq/L (136-145); eGFR For African Americans > 60 (> 60); eGFR For Non-African Americans > 60 (> 60)
[2019-03-20 06:00] LABS: Troponin I 0.05 ng/mL (< 0.04)
[2019-03-20] MEDS ORDERED: Aspirin 81 MG TAB.CHEW PO ONE (06:07)
[2019-03-20] MEDS ORDERED: Naloxone 0.4 MG/ML INJ IVP PRN (07:58)
[2019-03-20] MEDS ORDERED: Ondansetron 4 MG/2 ML VIAL IVP PRN (07:58)
[2019-03-20] MEDS: Furosemide 40 MG/4 ML VIAL IVP SCH ×2 (08:51→17:41)
[2019-03-20] MEDS ORDERED: *HR* OxyCODONE Immed Rel 15 MG TABLET PO PRN (09:00)
[2019-03-20] MEDS: Aspirin Enteric Coated 81 MG Tablet PO SCH (10:05)
[2019-03-20] MEDS: Gabapentin 300 MG CAPSULE PO SCH ×3 (10:05→21:56)
[2019-03-20] MEDS: predniSONE 10 MG TABLET PO SCH (10:05)
[2019-03-20] MEDS: *HR* OxyCODONE Immed Rel 5 MG TABLET PO PRN ×2 (10:21→17:41)
[2019-03-20] MEDS: Mycophenolate Sodium (DR) 180 MG TABLET.DR PO SCH ×2 (12:34→19:19)
[2019-03-20] MEDS ORDERED: Furosemide 40 MG/4 ML VIAL IVP ONE (14:12)
[2019-03-20] MEDS ORDERED: Furosemide 40 MG/4 ML VIAL ONE (14:33)
[2019-03-20] MEDS: *HR* Heparin 5,000 UNIT/ML VIAL SQ SCH ×2 (14:40→21:56)
[2019-03-20] MEDS ORDERED: NON-FORMULARY MEDICATION 1 EACH EACH (Ipratropium/Albuterol Sulfate [Combivent Respimat 20 IH PRN (15:11)
[2019-03-20] MEDS ORDERED: Ipratropium/Albuterol Neb 3 ML IH PRN (15:25)
[2019-03-20] MEDS ORDERED: Insulin LISPRO 300 UNITS/3 ML VIAL SQ SCH (21:00)
[2019-03-20] MEDS ORDERED: Melatonin 3 MG TABLET PO SCH (21:00)
[2019-03-21] MEDS: *HR* OxyCODONE Immed Rel 5 MG TABLET PO PRN ×2 (00:10→08:34)
[2019-03-21] MEDS: *HR* Heparin 5,000 UNIT/ML VIAL SQ SCH (05:27)
[2019-03-21 06:12] LABS: Basophils % 0.1 %; Eosinophils % 0.3 %; Hematocrit 39.8 % (37.5-50.1); Immature Granulocytes % 0.3 % (0-4); Lymphocytes # 1.1 K/mcL (0.6-4.6); Lymphocytes % 15.9 %; Mean Corpuscular HGB Conc 32.7 g/dL (31.6-35.5); Mean Corpuscular Hemoglobin 31.3 pg (28.0-33.3); Mean Corpuscular Volume 95.9 fL (83.0-100.0); Mean Platelet Volume 9.6 fL (9.4-12.4); Monocytes # 0.5 K/mcL (0.0-1.3); Monocytes % 7.9 %; Platelet Count 180 K/mcL (140-400); Red Blood Count 4.15 M/mcL (4.19-5.50); Red Cell Distribution Width 14.9 % (11.5-14.5); Segmented Neutrophils % 75.5 %; White Blood Count 6.7 K/mcL (4.3-11.1)
[2019-03-21 06:26] LABS: BUN/Creatinine Ratio 19 (6-26); Blood Urea Nitrogen 20 mg/dL (6-20); Carbon Dioxide 28 mEq/L (23-29); Chloride 99 mEq/L (98-107); Glucose 115 mg/dL (70-105); Osmolality,Calculated 286 (280-300); Potassium 3.8 mEq/L (3.5-5.1); Sodium 136 mEq/L (136-145); eGFR For African Americans > 60 (> 60); eGFR For Non-African Americans > 60 (> 60)
[2019-03-21] MEDS ORDERED: *HR* Heparin 5,000 UNIT/ML VIAL IVP ONE (07:18)
[2019-03-21] MEDS ORDERED: *HR* Heparin 5,000 UNIT/ML VIAL IVP PRN ×2 (07:18)
[2019-03-21] MEDS ORDERED: Heparin 25,000 UNIT/250 ML D5W 25,000 UNIT/250 ML IV.SOLN IVC SCH (07:30)
[2019-03-21] MEDS: Mycophenolate Sodium (DR) 180 MG TABLET.DR PO SCH (08:34)
[2019-03-21] MEDS: Gabapentin 300 MG CAPSULE PO SCH ×2 (08:34→13:32)
[2019-03-21] MEDS: predniSONE 10 MG TABLET PO SCH (08:34)
[2019-03-21] MEDS: Aspirin Enteric Coated 81 MG Tablet PO SCH (08:35)
[2019-03-21] MEDS: Furosemide 40 MG/4 ML VIAL IVP SCH (08:35)
[2019-03-21] MEDS: Insulin LISPRO 300 UNITS/3 ML VIAL SQ SCH ×2 (08:39→11:39)
[2019-03-21 09:49] LABS: Hematocrit 40.7 % (37.5-50.1); Hemoglobin 13.6 g/dL (12.9-16.9); Mean Corpuscular HGB Conc 33.4 g/dL (31.6-35.5); Mean Corpuscular Hemoglobin 31.1 pg (28.0-33.3); Mean Corpuscular Volume 93.1 fL (83.0-100.0); Mean Platelet Volume 9.2 fL (9.4-12.4); Platelet Count 192 K/mcL (140-400); Red Blood Count 4.37 M/mcL (4.19-5.50); Red Cell Distribution Width 14.9 % (11.5-14.5); White Blood Count 9.7 K/mcL (4.3-11.1)
[2019-03-21 09:59] LABS: Heparin anti-factor XA UFH 0.04 IU/mL (0.30-0.70)
[2019-03-21 10:00] LABS: INR 0.9; Prothrombin Time 10.2 Seconds (9.4-12.1)
[2019-03-21 10:59] VITALS: BP 130/79
== END 2019-03-21 14:16 | disposition other institution (70) ==
LOC: EMEROOARM 04:27 → 2ANU 04:27 → SUATTDRO 06:48 → 2ANU 07:43
PROVIDERS: ADMIT Internal Medicine; ATTEND Pharmacist